=== PATIENT | female | born 1985 | race Caucasian/White ===

== ENCOUNTER 2016-09-27 17:26 | Emergency (ER) | payer MEDICAID, OTHER ==
[~2016-09-27] VITALS: Wt 85.0 kg
[2016-09-27] MEDS ORDERED: KETOROLAC 60 MG INJ IM STA (19:04)
--- NOTE | 2016-09-27 20:55 | RADRPT ---
PROCEDURE: XR Left Ankle CLINICAL INDICATION: Ankle, foot injury TECHNIQUE: Standard 3 view radiographs were submitted. COMPARISON: None FINDINGS: Osseous structures: A small osseous fragment projects inferior to the lateral malleolus and lateral to the talus suspicious for a small avulsion. The remaining osseous elements appear intact. Joint spaces: The ankle mortise is well maintained. Soft tissues: Soft tissue swelling is seen about the lateral malleolus. IMPRESSION: 1. Small avulsion fragment projects inferior to the lateral malleolus and lateral to the talus. 2. Soft tissue swelling seen laterally. Physician Adriana Date Time Electronically viewed and signed by Physician Adriana on 09/27/2016 20:54 /
--- NOTE | 2016-09-27 20:56 | RADRPT ---
PROCEDURE: XR Left Foot CLINICAL INDICATION: Left ankle/foot injury TECHNIQUE: AP, oblique, and lateral radiographs were submitted. COMPARISON: None FINDINGS: Osseous structures: appear well mineralized and intact with no fracture or destructive process iden tified. Joint spaces: are well maintained, with no significant spurring, erosion or joint effusion evident. Soft tissues: appear unremarkable. IMPRESSION: Unremarkable left foot. Physician Adriana Date Time Electronically viewed and signed by Og Glover Physician on 09/27/2016 20:55 /
[2016-09-27] MEDS ORDERED: IBUP-1542 PO (21:59)
[2016-09-27] MEDS ORDERED: HYDROCODONE/APAP (5/325) TAB PO ONE (22:30)
[2016-09-27 22:45] VITALS: BP 118/74; PULSE 71; RESP 18; TEMP 98
--- NOTE | 2016-09-28 00:16 | ERD ---
ER Documentation Chief Complaint Date/Time DATE: 09/28/16 TIME: 00:13 Chief Complaint LEFT ANKLE INJURY AFTER MISSING STEP, MILD SWELLING HPI 31-year-old female patient with no significant past medical history presents the ED complaining of a left ankle injury after missing a step while walking down the stairs. Reports that she slightly inverted her foot. Denies any fever , chills, loss of sensation, loss of range of motion, weakness. States that she still able to ambulate however there is pain. States that the pain is mainly in the left outer portion of her left ankle. Describes the pain as sharp and rates it a 10 out of 10. ROS All systems reviewed and are negative except as per history of present illness. Medications Home Meds Active Scripts Ibuprofen* (Motrin*) 600 Mg Tab, 600 MG PO Q6, #30 TAB Prov:SIVA BRANCH PA-C 09/27/16 Allergies Allergies: Uncoded Allergies: PORK (Allergy, Intermediate, 09/27/16) PMhx/Soc Medical and Surgical Hx: pt denies Surgical Hx History of Surgery: No Anesthesia Reaction: No Hx Neurological Disorder: No Hx Respiratory Disorders: Yes (asthma) Hx Cardiac Disorders: No Hx Psychiatric Problems: No Hx Miscellaneous Medical Probl: No Hx Alcohol Use: No Hx Substance Use: No Hx Tobacco Use: No Smoking Status: Never smoker Physical Exam Vitals Vital Signs Date Time Temp Pulse Resp B/P Pulse Ox O2 Delivery O2 Flow Rate FiO2 09/27/16 22:45 98.0 71 18 118/74 100 Room Air 09/27/16 17:40 98.7 69 17 132/62 99 Physical Exam Const: Rej-rli-wfvohfxxy, well-nourished. In no acute distress. Head: Atraumatic, normocephalic Eyes: Normal Conjunctiva without injection ENT: Normal external ear, nose and mouth. Neck: Full range of motion. No meningismus. Resp: Clear to auscultation bilaterally. No wheezing, rhonchi, rales, or crackles. No accessory muscle use. No retractions. Cardio: Regular rate and rhythm, no murmurs Skin: No petechiae or rashes Back: No midline tenderness. No CVA tenderness. Ext: No cyanosis, or edema. Cap refill less than 2 seconds. Distal pulses intact bilaterally. Tenderness palpation of the left lateral malleolus. Edema and erythema noted over the left lateral malleolus. Limited range of motion due to pain. Neur: Awake and alert. Limping gait due to pain. Muscle strength 5/5. Sensation intact bilaterally. Psych: Normal Mood and Affect Results 24 hrs Current Medications Medications (Trade) Dose Ordered Sig/Eduin Route PRN Reason Start Time Stop Time Status Last Admin Dose Admin Ketorolac Tromethamine (Toradol) 60 mg ONCE STAT IM 09/27/16 19:04 09/27/16 19:06 DC 09/27/16 19:09 Acetaminophen/ Hydrocodone Bitart ([place] (5/325)) 1 tab ONCE ONCE PO 09/27/16 22:30 09/27/16 22:31 DC 09/27/16 22:24 Procedures/MDM This is a 31-year-old female patient with no significant past medical history presents the ED complaining of a left ankle injury. Patient is afebrile and nontoxic-appearing. Patient has normal vital signs. Left ankle x-ray was ordered to further evaluate patient. Patient was given Ibuprofen, [place] here in the ED with improvement of her pain. PROCEDURE: XR Left Ankle CLINICAL INDICATION: Ankle, foot injury TECHNIQUE: Standard 3 view radiographs were submitted. COMPARISON: None FINDINGS: Osseous structures: A small osseous fragment projects inferior to the lateral malleolus and lateral to the talus suspicious for a small avulsion. The remaining osseous elements appear intact. Joint spaces: The ankle mortise is well maintained. Soft tissues: Soft tissue swelling is seen about the lateral malleolus. IMPRESSION: 1. Small avulsion fragment projects inferior to the lateral malleolus and lateral to the talus. 2. Soft tissue swelling seen laterally. PROCEDURE: XR Left Foot CLINICAL INDICATION: Left ankle/foot injury TECHNIQUE: AP, oblique, and lateral radiographs were submitted. COMPARISON: None FINDINGS: Osseous structures: appear well mineralized and intact with no fracture or destructive process identified. Joint spaces: are well maintained, with no significant spurring, erosion or joint effusion evident. Soft tissues: appear unremarkable. IMPRESSION: Unremarkable left foot. Patient is placed in a posterior ankle splint. Crutches given to patient to help with ambulation. Splint Assessment: Neurovascularly intact pre and post splint placement with good fit. Patient sustained a small avulsion fragment patient over the inferior to the lateral malleolus and lateral to the talus. Patient's extremity symptoms have stabilized while they have been evaluated in the department and are appropriate for outpatient follow up. No evidence of dislocations, compartment syndrome, neurologic injury, vascular injury, open joint, open fracture, tendon laceration , septic arthritis, osteomyelitis, DVT, foreign body, or other emergent conditions. Discharge medications: Ibuprofen Follow up with primary care physician in 1-2 days for a referral to orthopedic physician. Instructed patient to return to the ED sooner for any worsening symptoms. Patient's questions were answered. Patient understood and agreed with discharge plan. Patient discharged stable. Departure Diagnosis: Primary Impression: Ankle injury Encounter type: initial encounter Laterality: left Qualified Code: S99.912A - Ankle injury, left, initial encounter Condition: Stable Patient Instructions: Fracture, Ankle (General) Referrals: [facility] YOU HAVE RECEIVED A MEDICAL SCREENING EXAM AND THE RESULTS INDICATE THAT YOU DO NOT HAVE A CONDITION THAT REQUIRES URGENT TREATMENT IN THE EMERGENCY DEPARTMENT. FURTHER EVALUATION AND TREATMENT OF YOUR CONDITION CAN WAIT UNTIL YOU ARE SEEN IN YOUR DOCTORS OFFICE WITHIN THE NEXT 1-2 DAYS. IT IS YOUR RESPONSIBILITY TO MAKE AN APPOINTMENT FOR FOLOW-UP CARE. IF YOU HAVE A PRIMARY DOCTOR --you should call your primary doctor and schedule an appointment IF YOU DO NOT HAVE A PRIMARY DOCTOR YOU CAN CALL OUR PHYSICIAN REFERRAL HOTLINE AT IF YOU CAN NOT AFFORD TO SEE A PHYSICIAN YOU CAN CHOSE FROM THE FOLLOWING [facility] [address] [facility]. [facility] [address] [facility] [facility] [address] [facility] [facility] [address] [facility]. [facility] [address] [facility]. [facility]. [address] [facility] YOU HAVE RECEIVED A MEDICAL SCREENING EXAM AND THE RESULTS INDICATE THAT YOU DO NOT HAVE A CONDITION THAT REQUIRES URGENT TREATMENT IN THE EMERGENCY DEPARTMENT. FURTHER EVALUATION AND TREATMENT OF YOUR CONDITION CAN WAIT UNTIL YOU ARE SEEN IN YOUR DOCTORS OFFICE WITHIN THE NEXT 1-2 DAYS. IT IS YOUR RESPONSIBILITY TO MAKE AN APPOINTMENT FOR FOLOW-UP CARE. IF YOU HAVE A PRIMARY DOCTOR --you should call your primary doctor and schedule and appointment IF YOU DO NOT HAVE A PRIMARY DOCTOR YOU CAN CALL OUR PHYSICIAN REFERRAL HOTLINE AT . IF YOU CAN NOT AFFORD TO SEE A PHYSICIAN YOU CAN CHOSE FROM THE FOLLOWING [facility] INSTITUTIONS: [facility] [address] [place] [address] [facility] [address] [place] [address] [facility] [address] [place] [address] [facility] Urgent Care 7 a.m.- 11 p.m. Every Day of the Week NO APPOINTMENT OR AUTHORIZATION NEEDED SO [facility] Hours: Mon-Fri 9:00 AM - 5:00 PM Additional Instructions: FOLLOW UP WITH YOUR PRIMARY CARE PHYSICIAN TOMORROW for a referral to an orthopedic physician for further evaluation and treatment.Return to this facility if you are not improving as expected. SIVA BRANCH PA-C Sep 28, 2016 00:16
== END 2016-09-27 22:45 | disposition home or self-care (01) ==
LOC: FTE 17:26
DX: S99.912A Unspecified injury of left ankle, initial encounter (principal); J45.909 Unspecified asthma, uncomplicated; W10.9XXA Fall (on) (from) unspecified stairs and steps, initial encounter; Y92.9 Unspecified place or not applicable
CPT/HCPCS: 29505; 73610; 73630; 96372; J1885; Z7502; Z7610

== ENCOUNTER 2016-12-26 11:23 | Emergency (ER) | payer OTHER ==
[~2016-12-26] VITALS: Ht 162.6 cm; Wt 83.5 kg
[~2016-12-26 11:23] MED LIST: IBUP-1542 PO
[2016-12-26 11:30] VITALS: Ht 162.6 cm; Wt 83.5 kg
[2016-12-26] MEDS ORDERED: ALBUTEROL 0.083% (NEB) 2.5 MG/3 ML AMP HHN STA (12:20)
[2016-12-26] MEDS ORDERED: predniSONE 20 MG TAB PO ONE (12:30)
[2016-12-26] MEDS ORDERED: ALBU18HF INHALATION (13:37)
[2016-12-26] MEDS ORDERED: PRED20TA PO (13:37)
--- NOTE | 2016-12-26 13:44 | ERD ---
ER Documentation Chief Complaint Date/Time DATE: 12/26/16 TIME: 13:42 Chief Complaint pt bib family with c/o "asthma flare up x 2 days, wheezing noted 0 distress HPI This 31-year-old female claims of wheezing for last 2 days. She is using albuterol at home without relief. She has rare episodes of wheezing. She denies any recent URIs, recent known allergies. She denies any fevers, chest pain, vomiting. ROS All systems reviewed and are negative except as per history of present illness. Medications Home Meds Active Scripts Albuterol Sulfate* (Ventolin HFA*) 18 Gm Hfa.aer.ad, 2 PUFF INHALATION Q4H for 7 Days, #1 INHALER Prov:MIRNA GOTTI MD 12/26/16 Prednisone* (Prednisone*) 20 Mg Tab, 40 MG PO DAILY for 4 Days, TAB Start December 27, 2016. Prov:MIRNA GOTTI MD 12/26/16 Ibuprofen* (Motrin*) 600 Mg Tab, 600 MG PO Q6, #30 TAB Prov:SIVA BRANCH PA-C 09/27/16 Allergies Allergies: Uncoded Allergies: PORK (Allergy, Intermediate, 09/27/16) PMhx/Soc History of Surgery: No Anesthesia Reaction: No Hx Neurological Disorder: No Hx Respiratory Disorders: Yes (asthma) Hx Cardiac Disorders: No Hx Psychiatric Problems: No Hx Miscellaneous Medical Probl: No Hx Alcohol Use: No Hx Substance Use: No Hx Tobacco Use: No Smoking Status: Never smoker Physical Exam Vitals Vital Signs Date Time Temp Pulse Resp B/P Pulse Ox O2 Delivery O2 Flow Rate FiO2 12/26/16 13:00 67 22 97 21 12/26/16 11:30 98.6 78 20 108/71 98 Physical Exam Const: [], Lig-vhu-kwosijaje per Head: Atraumatic Eyes: Normal Conjunctiva ENT: Normal External Ears, Nose and Mouth. TMs and oropharynx normal. Neck: Full range of motion..~ No meningismus. Resp: Clear to auscultation bilaterally with scattered wheezing. Cardio: Regular rate and rhythm, no murmurs Abd: Soft, non tender, non distended. Normal bowel sounds Skin: No petechiae or rashes Back: No midline or flank tenderness Ext: No cyanosis, or edema Neur: Awake and alert Psych: Normal Mood and Affect Results 24 hrs Current Medications Medications (Trade) Dose Ordered Sig/Eduin Route PRN Reason Start Time Stop Time Status Last Admin Dose Admin Prednisone (Prednisone) 60 mg ONCE ONCE PO 12/26/16 12:30 12/26/16 12:31 DC 12/26/16 13:22 Albuterol (Proventil 0.083% (Neb)) 5 mg ONCE STAT HHN 12/26/16 12:20 12/26/16 12:21 DC 12/26/16 12:59 Procedures/MDM Was given albuterol treatment 1. Patient was given prednisone 60 mg by mouth. Had improved wheezing after treatment. Patient presents with symptoms of reactive airway disease without evidence of hypoxemia, respiratory status or signs of pneumonia, PE, acute coronary syndrome, acute abdomen. She will treated with Ventolin and prednisone further observation at home. The patient was stable with no new complaints during the ER course. Clinically, there is no current evidence to suggest meningitis, sepsis, acute abdomen, pneumonia, acute coronary syndrome, pulmonary embolism, or any other emergent condition appearing to require further evaluation or hospitalization. The patient should certainly return for any new or worsening symptoms per the aftercare instructions. They should otherwise follow-up with her primary care doctor for reevaluation this week. Departure Diagnosis: Primary Impression: Wheezing Condition: Stable Patient Instructions: Asthma Additional Instructions: Cheque otro vez con gaines doctor primario en el proximo knowles or regresa para mas o nueva simptomas. MIRNA GOTTI MD Dec 26, 2016 13:44
== END 2016-12-26 14:10 | disposition home or self-care (01) ==
LOC: FTE 11:23
DX: J45.901 Unspecified asthma with (acute) exacerbation (principal)
CPT/HCPCS: 94664; 99284; J7512